=== PATIENT | female | born 1970 | race Asian ===

== ENCOUNTER → 2023-09-18 09:08 | Outpatient (REF) | payer BC, SELFPAY | LOC: HWWDC 09:08 | PROVIDERS: ATTENDING PHYSICIAN Internal Medicine | DX: Z12.31 Encounter for screening mammogram for malignant neoplasm of breast (principal) | CPT/HCPCS: 77063; 77067 ==

== ENCOUNTER → 2023-10-04 06:28 | Day surgery (SDC) | payer BC, SELFPAY | LOC: GI 06:28 | PROVIDERS: ATTENDING PHYSICIAN Internal Medicine Gastroenterology; FAMILY PHYSICIAN Internal Medicine | DX: Z12.11 Encounter for screening for malignant neoplasm of colon (principal); D12.0 Benign neoplasm of cecum; K57.30 Diverticulosis of large intestine without perforation or abscess without bleeding; K62.1 Rectal polyp; K64.8 Other hemorrhoids; Z80.0 Family history of malignant neoplasm of digestive organs | CPT/HCPCS: 45380; 88305 ==

== ENCOUNTER → 2024-09-16 16:42 | Outpatient (REF) | payer BC, SELFPAY | LOC: HWRAD 16:42 | PROVIDERS: ATTENDING PHYSICIAN Hospitalist | DX: M25.562 Pain in left knee (principal) | CPT/HCPCS: 73564 ==